=== PATIENT | male | born 1950 | race Caucasian/White ===

== ENCOUNTER 2024-06-17 09:56 | Day surgery (SDC) | payer OTHER ==
[~2024-06-17] VITALS: Ht 175.3 cm; Wt 93.2 kg
[2024-06-17] VITALS (13 sets, daily range): BP systolic 115–171; BP diastolic 76–118
[~2024-06-17 09:56] MED LIST: CEPH500 PO; CRUTCH USE; GABA100 PO; HYDACE5 PO; METO25 PO; NAPR500 PO; SULTRIDS PO; Ultram50 MG PO
[2024-06-17] MEDS ORDERED: NS 1,000 ML IV ONE (10:09)
[2024-06-17] MEDS ORDERED: LISI20 PO (10:17)
[2024-06-17] MEDS ORDERED: METF500 PO (10:18)
[2024-06-17] MEDS ORDERED: WARF6 PO (10:20)
[2024-06-17] MEDS ORDERED: Midazolam HCl 1MG / ML 2ML Vial ONE ×2 (10:34)
[2024-06-17] MEDS ORDERED: Flumazenil 0.1 MG / ML 5ML Vial ONE (10:34)
[2024-06-17] MEDS ORDERED: DiphenhydrAMINE HCl 50 MG/ML 1ML Vial ONE (10:34)
[2024-06-17] MEDS ORDERED: Naloxone HCl 0.4MG / ML 1ML Vial ONE (10:34)
--- NOTE | 2024-06-17 11:19 | NUR ---
PATIENT TOLERATED CARDIOVERSION 200 JOULES WELL ON LIGHT SEDATION. EKG PERFORMED AND VERIFIED AFTERWARDS. PATIENT NOW SITTING UPRIGHT IN BED, CONVERSING APPROPRIATELY. VSS ON RA
--- NOTE | 2024-06-17 11:40 | NUR ---
PATIENT DISCHARGED HOME AT THIS TIME. VSS ON RA. PIV REMOVED WITHOUT DIFFICULTY, CATHETER INTACT. DISCHARGE INSTRUCTIONS AND FOLLOW UP APPOINTMENT REVIEWED. PATIENT WHEELED TO HOSPITAL ENTRANCE AND FRIEND [facility]UDW[facility] ABLE TO PROVIDE TRANSPORTATION HOME
== END 2024-06-19 22:53 | disposition home or self-care (01) ==
LOC: ORSCMMR 09:56 → MHTC 09:56 → ORSCMMR 09:57 → MHTC 10:09
DX: I48.19 Other persistent atrial fibrillation (principal)
CPT/HCPCS: 92960; 99152; J1200; J2250; J2310; J7030